=== PATIENT | female | born 1980 | race Caucasian/White ===

== ENCOUNTER 2017-02-18 16:37 | Emergency (ER) | payer BC ==
[2017-02-18 17:05] VITALS: BP 107/71; PULSE 83; RESP 16; TEMP 97.4
--- NOTE | 2017-02-18 17:58 | XR ---
EXAMINATION TYPE: XR foot complete LT DATE OF EXAM: 02/18/2017 CLINICAL HISTORY: pain TECHNIQUE: Frontal, lateral and oblique images of the left foot are obtained. COMPARISON: None. FINDINGS: Nondisplaced fracture at the base of the fifth metatarsal. The joint spaces appear within normal limits. The overlying soft tissue appears unremarkable. IMPRESSION: Nondisplaced fracture at the base of the fifth metatarsal. ICD 10 closed FRACTURE, INITIAL EVALUATION
--- NOTE | 2017-02-18 18:00 | ED ---
General Adult HPI - General Chief complaint: Fall Stated complaint: foot injury Time Seen by Provider: 02/18/17 17:18 Source: patient, RN notes reviewed Mode of arrival: wheelchair Limitations: no limitations - History of Present Illness Initial comments: Patient 36-year-old female who presents emergency room today with a chief complaint of injury to the left foot that occurred prior to arrival. She does admit that she was in her attic putting some insulation when she fell through the ceiling injuring her left foot. She denies any head injury or loss consciousness. She denies any other complaints or symptoms other than pain to the left foot. Patient states having pain with ambulation. Patient denies any recent fever, chills, shortness of breath, chest pain, back pain, abdominal pain , nausea or vomiting, numbness or tingling, dysuria or hematuria, constipation or diarrhea, headaches or visual changes, or any other complaints. - Related Data Home Medications Medication Instructions Recorded Confirmed [id number] Acid 1 each PO DAILY 04/20/14 04/27/14 [-U Capsule] Acetaminophen Tab [Tylenol] 1,000 mg PO Q6HR PRN 04/27/14 04/27/14 Docusate [Colace] 100 mg PO DAILY 04/27/14 04/27/14 Ibuprofen [Motrin] 600 mg PO Q6HR PRN 04/27/14 04/27/14 Previous Rx's Medication Instructions Recorded Azithromycin [Zithromax Z-pack] 250 mg PO DIRECTED #6 tab 04/28/14 Metoclopramide HCl [Reglan] 10 mg PO Q6HR PRN #10 tablet 04/28/14 Ibuprofen [Motrin] 600 mg PO Q6HR PRN #40 day 02/18/17 Allergies Allergy/AdvReac Type Severity Reaction Status Date / Time Penicillins Allergy Itching Verified 04/27/14 20:11 Review of Systems ROS Statement: Those systems with pertinent positive or pertinent negative responses have been documented in the HPI. ROS Other: All systems not noted in ROS Statement are negative. Past Medical History Additional Past Medical History / Comment(s): Cystic fibrosis carrier, negative. History of Any Multi-Drug Resistant Organisms: None Reported Past Surgical History: Section Additional Past Surgical History / Comment(s): wisdom teeth removed Past Anesthesia/Blood Transfusion Reactions: No Reported Reaction Past Psychological History: No Psychological Hx Reported Smoking Status: Former smoker Past Alcohol Use History: None Reported Past Drug Use History: None Reported General Exam - General Exam Comments Initial Comments: General: The patient is awake and alert, in no distress, and does not appear acutely ill. Neck: The neck is supple, there is no tenderness or JVD. Cardiovascular: There is a regular rate and rhythm. No murmur, rub or gallop is appreciated. Respiratory: Lungs are clear to auscultation, respirations are non-labored, breath sounds are equal. No wheezes, stridor, rales, or rhonchi. Musculoskeletal: Patient does have some bruising and swelling over the fourth and fifth metatarsals. Locally tender over the third fourth and fifth proximal metatarsals. No tenderness down into the digits. No tenderness to the left ankle or left knee. Sensations are intact pulses bilateral 2+. Strength 4/5 due to pain. Neurological: A&O x 3. CN II-XII intact, There are no obvious motor or sensory deficits. Coordination appears grossly intact. Speech is normal. Skin: Skin is warm and dry and no rashes or lesions are noted. Psychiatric: Normal mood and affect. Limitations: no limitations Course Vital Signs 02/18/17 17:00 Temperature 97.4 F L Pulse Rate 83 Respiratory 16 Rate Blood Pressure 107/71 O2 Sat by Pulse 100 Oximetry Medical Decision Making - Medical Decision Making Ecotrin reviewed does show a fracture of the fifth metatarsal nondisplaced. Results were discussed with the patient. She's been splinted in a posterior short leg OCL splint. Neurovascular rechecked and intact in patient discharged and advised to follow-up with orthopedics over the next 2 days. Advised nonweightbearing. Disposition Clinical Impression: Foot fracture, left Disposition: HOME SELF-CARE Condition: Good Instructions: Foot Fracture in Adults (ED) Additional Instructions: Please leave splint in place until follow-up appointment with orthopedics over the next 2 days. Please use crutches with nonweightbearing. Please continue to ice elevate the affected area. Please return here to emergency room if any symptoms increase or worsen or for any other concerns. Prescriptions: Ibuprofen [Motrin] 600 mg PO Q6HR PRN #40 day PRN Reason: Pain Referrals: Joe Harrison MD [Primary Care Provider] - 1-2 days Mckinley Bergeron DO [Doctor of Osteopathic Medicine] - 1-2 days Time of Disposition: 18:16
== END 2017-02-18 18:29 | disposition home or self-care (01) ==
LOC: EC 16:37
DX: S92.355A Nondisplaced fracture of fifth metatarsal bone, left foot, initial encounter for closed fracture (principal); Z87.891 Personal history of nicotine dependence; Z88.0 Allergy status to penicillin; Z79.899 Other long term (current) drug therapy; W17.89XA Other fall from one level to another, initial encounter; Y93.89 Activity, other specified
CPT/HCPCS: 29515; 99283

== ENCOUNTER → 2017-03-13 | Outpatient (CLI) | payer BC ==
--- NOTE | 2017-03-13 09:43 | MM ---
Reason for exam: screening (asymptomatic). Baseline mammogram. History: Patient had first child at age 33. Family history of breast cancer in mother at age 4. Physical Findings: Nurse did not find any significant physical abnormalities on exam. MG 3D Screening Mammo W/Cad Bilateral CC and MLO view(s) were taken. The breast tissue is extremely dense which could obscure a lesion on mammography. Stable benign calcifications. There is no discrete abnormality. These results were verbally communicated with the patient and result sheet given to the patient on 03/13/17. ASSESSMENT: Benign, BI-RAD 2 RECOMMENDATION: Routine screening mammogram of both breasts in 1 year.
== END | disposition home or self-care (01) ==
LOC: RADMAMWWP 08:14
PROVIDERS: ATTEND Obstetrics & Gynecology
DX: Z12.31 Encounter for screening mammogram for malignant neoplasm of breast (principal); Z80.3 Family history of malignant neoplasm of breast
CPT/HCPCS: 77063; G0202

== ENCOUNTER → 2018-04-22 | Outpatient (CLI) | payer BC ==
--- NOTE | 2018-04-27 08:48 | USB ---
Reason for exam: additional evaluation requested from abnormal screening. History: Patient had first child at age 33. Family history of breast cancer in mother at age 40. Took hormonal contraceptives for 4 years. Physical Findings: Nurse did not find any significant physical abnormalities on exam. US Breast Workup Limited RT Right limited breast ultrasound including focal area of concern, retroareolar and axilla demonstrates a 0.5 x 0.5 x 0.3cm oval, cystic lesion at 9 o'clock and a 0.8 x 0.5 x 0.6cm cystic lesion at 11 o'clock. These seem to correspond to nodularity on mammogram. Diagnostic mammogram can be performed in 1 year. These results were verbally communicated with the patient and result sheet given to the patient on 04/22/18. ASSESSMENT: Probably benign, BI-RAD 3 RECOMMENDATION: Follow-up diagnostic mammogram of both breasts in 1 year.
== END | disposition home or self-care (01) ==
LOC: RADUSWWP 15:40
PROVIDERS: ATTEND Obstetrics & Gynecology
DX: R92.8 Other abnormal and inconclusive findings on diagnostic imaging of breast (principal)

== ENCOUNTER → 2019-05-25 | Outpatient (CLI) | payer BC ==
--- NOTE | 2019-05-25 10:36 | CT ---
EXAMINATION TYPE: CT abdomen pelvis wo con DATE OF EXAM: 05/25/2019 HISTORY: Constipation for 5+ years. CT DLP: 187.7 mGycm. Automated Exposure Control for Dose Reduction was Utilized. TECHNIQUE: CT scan of the abdomen and pelvis is performed with oral but without IV contrast. COMPARISON: CT abdomen and pelvis April 27, 2014 FINDINGS: Within the limitations of a non-contrast study, the following observations are made. LUNG BASES: No significant abnormality is appreciated. LIVER/GB: Simple appearing 1.3 cm thin-walled cyst right hepatic dome posterior segment axial image 1 6 slightly increased in size from prior. PANCREAS: No significant abnormality is seen. SPLEEN: No significant abnormality is seen. ADRENALS: No significant abnormality is seen. KIDNEYS: No renal stones or hydronephrosis is seen bilaterally. BOWEL: Patient has very little abdominal fat making evaluation suboptimal. Oral contrast reaches sple shahbaz flexure making evaluation of distal bowel also slightly suboptimal. There is no suspicious small or large bowel dilatation. Perhaps mild prominence of fecal material throughout the colon. GENITAL ORGANS: Anteverted uterus. A pessary type device is noted at level of cervix on current study .. LYMPH NODES: No greater than 1cm abdominal or pelvic lymph nodes are appreciated. OSSEOUS STRUCTURES: No significant abnormality is seen. OTHER: No significant additional abnormality is seen. IMPRESSION: No bowel obstruction. Perhaps mild diffuse colonic fecal stasis.
== END | disposition home or self-care (01) ==
LOC: RADCTMAIN 08:19
PROVIDERS: ATTEND Family Medicine
DX: R10.9 Unspecified abdominal pain (principal)
CPT/HCPCS: 74176

== ENCOUNTER → 2019-07-09 | Outpatient (CLI) | payer BC ==
--- NOTE | 2019-07-09 13:33 | MM ---
Reason for exam: additional evaluation requested from prior study. Last mammogram was performed 1 year and 3 months ago. History: Patient had first child at age 33. Family history of breast cancer in mother at age 40 and breast cancer in sister at age 41. Took hormonal contraceptives for 4 years. Taking estrogen for 6 months. Physical Findings: Nurse did not find any significant physical abnormalities on exam. MG 3D Diag Mammo W/Cad YAEL Bilateral CC and MLO view(s) were taken. Prior study comparison: April 13, 2018, bilateral MG 3d screening mammo w/cad. March 13, 2017, bilateral MG 3d screening mammo w/cad. The breast tissue is extremely dense which could obscure a lesion on mammography. Finding: There is a high density, lobulated mass located 2-3 cm from the nipple in the 9 o'clock position of the right breast. There is no discrete abnormality. Left subareolar ultrasound can be performed. New finding since April 13, 2018 and March 13, 2017. These results were verbally communicated with the patient and result sheet given to the patient on 07/09/19. ASSESSMENT: Incomplete: need additional imaging evaluation, BI-RAD 0 RECOMMENDATION: Ultrasound of both breasts.
--- NOTE | 2019-07-09 13:34 | USB ---
Reason for exam: additional evaluation requested from abnormal screening. History: Patient had first child at age 33. Family history of breast cancer in mother at age 40 and breast cancer in sister at age 41. Took hormonal contraceptives for 4 years. Taking estrogen for 6 months. US Breast Limited BILAT Right limited breast ultrasound including focal area of concern, retroareolar and axilla demonstrates a 0.6 x 0.6 x 0.4cm cystic lesion at 9 o'clock and a 0.5 x 0.4 x 0.3cm cystic lesion at 11 o'clock. Left limited breast ultrasound including focal area of concern, retroareolar and axilla demonstrates a 0.8 x 0.7 x 0.3cm cystic lesion at 4 o'clock. These results were verbally communicated with the patient and result sheet given to the patient on 07/09/19. ASSESSMENT: Benign, BI-RAD 2 RECOMMENDATION: Routine screening mammogram of both breasts in 1 year. Manage patient on a clinical basis.
== END | disposition home or self-care (01) ==
LOC: RADMAMWWP 10:54
PROVIDERS: ATTEND Obstetrics & Gynecology
DX: R92.8 Other abnormal and inconclusive findings on diagnostic imaging of breast (principal)
CPT/HCPCS: 77062; 77066

== ENCOUNTER → 2020-07-19 | Outpatient (CLI) | payer BC ==
--- NOTE | 2020-07-21 08:55 | MM ---
Reason for exam: screening (asymptomatic). Last mammogram was performed 1 year ago. History: Patient is postmenopausal and had first child at age 33. Family history of breast cancer in mother at age 40 and breast cancer in sister at age 41. Took hormonal contraceptives for 4 years. Taking estrogen for 6 months. Physical Findings: A clinical breast exam by your physician is recommended on an annual basis and results should be correlated with mammographic findings. MG 3D Screening Mammo W/Cad Bilateral CC and MLO view(s) were taken. Prior study comparison: July 09, 2019, bilateral MG 3d diag mammo w/cad YAEL. April 13, 2018, bilateral MG 3d screening mammo w/cad. The breast tissue is extremely dense which could obscure a lesion on mammography. Bilateral underlying nodularity is fluctuating. No suspicious calcifications. ASSESSMENT: Incomplete: need additional imaging evaluation, BI-RAD 0 RECOMMENDATION: Ultrasound of both breasts. [facility] will attempt to contact patient to return for ultrasound.
== END | disposition home or self-care (01) ==
LOC: RADMAMWWP 15:42
PROVIDERS: ATTEND Obstetrics & Gynecology
DX: Z12.31 Encounter for screening mammogram for malignant neoplasm of breast (principal)
CPT/HCPCS: 77063; 77067

== ENCOUNTER → 2020-08-07 | Outpatient (CLI) | payer BC ==
--- NOTE | 2020-08-08 08:47 | USB ---
Reason for exam: additional evaluation requested from abnormal screening. History: Patient is postmenopausal and had first child at age 33. Family history of breast cancer in mother at age 40 and breast cancer in sister at age 41. Took hormonal contraceptives for 4 years. Taking estrogen for 6 months. Physical Findings: Nurse did not find any significant physical abnormalities on exam. US Breast Workup YAEL Right complete breast ultrasound includes all four quadrants, the retroareolar region and axilla. Finding demonstrates a 0.5 x 0.3 x 0.6cm cystic lesion at 9 o'clock and 0.9 x 0.7 x 0.9cm cystic lesion at 11 o'clock, larger but benign. Left complete breast ultrasound includes all four quadrants, the retroareolar region and axilla. Finding demonstrates a 0.6 x 0.3 x 0.5cm hypoechoic, circumscribed lesion at 3 o'clock, 6 month follow up recommended, a 0.9 x 0.4 x 0.8cm cystic lesion at 4 o'clock and a 0.3 x 0.3 x 0.3cm lesion too small to characterize at 11 o'clock, probably a cyst. These results were verbally communicated with the patient and result sheet given to the patient on 08/07/20. ASSESSMENT: Probably benign, BI-RAD 3 RECOMMENDATION: Ultrasound of the left breast in 6 months. (whole breast, particular attention 3 o'clock)
== END | disposition home or self-care (01) ==
LOC: RADUSWWP 15:01
PROVIDERS: ATTEND Obstetrics & Gynecology
DX: R92.8 Other abnormal and inconclusive findings on diagnostic imaging of breast (principal)

== ENCOUNTER → 2021-02-09 | Outpatient (CLI) | payer BC ==
--- NOTE | 2021-02-09 12:26 | USB ---
Reason for exam: follow-up at short interval from prior study. History: Patient is postmenopausal and had first child at age 33. Family history of breast cancer in mother at age 40 and breast cancer in sister at age 41. Took hormonal contraceptives for 4 years. Taking estrogen for 6 months. Physical Findings: Nurse Summary: all soft, nodular, movable (nurse ts). US Breast LT Left complete breast ultrasound includes all four quadrants, the retroareolar region and axilla. Finding demonstrates a 0.3 x 0.2 x 0.2cm oval, cystic lesion at 3 o'clock and a 0.5 x 0.3 x 0.4cm oval, cystic lesion at 2 o'clock. These results were verbally communicated with the patient and result sheet given to the patient on 02/09/21. ASSESSMENT: Benign, BI-RAD 2 RECOMMENDATION: Return to routine screening mammogram schedule for both breasts. Back on schedule. Manage patient on a clinical basis.
== END | disposition home or self-care (01) ==
LOC: RADUSWWP 08:27
PROVIDERS: ATTEND Obstetrics & Gynecology
DX: N60.02 Solitary cyst of left breast (principal); Z78.0 Asymptomatic menopausal state; Z80.3 Family history of malignant neoplasm of breast; Z79.3 Long term (current) use of hormonal contraceptives

== ENCOUNTER → 2021-07-05 | Outpatient (CLI) | payer BC ==
--- NOTE | 2021-07-05 16:32 | US ---
EXAMINATION TYPE: US thyroid st tissue head/neck DATE OF EXAM: 07/05/2021 COMPARISON: 2016 CLINICAL HISTORY: Z80.8 FAM HX OF MALIGNANT NEOPLASM OF ORGANS OR SYSTEMS. Previous thyroid nodules p er US. GLAND SIZE: Right Lobe: 5.5 x 1.9 x 1.1 cm Overall Parenchyma: homogenous Left Lobe: 4.8 x 1.7 x 1.2 cm Overall Parenchyma: homogeneous Isthmus Thickness: 0.2 cm NODULES RIGHT: # of nodules measured on right: 3 largest of multiple 1. 0.5 X 0.3 x 0.3 cm, upper pole, almost completely cystic, hypoechoic nodule, which is wide as is tall, with smooth margins, with echogenic foci. Prior size: 0.5 x 0.3 x 0.3 cm 2. 0.6 X 0.3 x 0.3 cm, mid pole, almost completely cystic, hypoechoic nodule, which is wide as is t all, with smooth margins, with echogenic foci. Prior size: 0.6 x 0.5 x 0.4 cm 3. 0.4 X 0.5 x 0.3 cm, lower pole, almost completely solid, hypoechoic nodule, which is wider than tall, with smooth margins, without echogenic foci. Prior size: no prior LEFT: # of nodules measured on left: one largest of multiple 1. 0.5 X 0.5 x 0.3 cm, lower pole, almost completely cystic, hypoechoic nodule, which is wider than tall, with smooth margins, with echogenic foci. Prior size: 0.5 x 0.4 x 0.2 cm ISTHMUS: # of nodules measured in the isthmus: 0 Bilateral neck scanned: inferior to left thyroid a hypoechoic nodule with appearance of lymph node is noted = 0.6 x 0.3 x 0.3cm. Heterogeneous normal-sized thyroid with small bilateral nodules redemonstrated. No significant new gr eater than 1 cm solid nodules. IMPRESSION: Findings consistent with multinodular goiter redemonstrated as detailed above.
== END | disposition home or self-care (01) ==
LOC: RADUSWWP 13:43
PROVIDERS: ATTEND Family Medicine
DX: E04.2 Nontoxic multinodular goiter (principal); Z80.8 Family history of malignant neoplasm of other organs or systems
CPT/HCPCS: 76536

== ENCOUNTER → 2021-09-12 | Outpatient (CLI) | payer BC ==
--- NOTE | 2021-09-14 10:44 | MM ---
Reason for exam: screening (asymptomatic). Last mammogram was performed 1 year and 2 months ago. History: Patient is postmenopausal and had first child at age 33. Family history of breast cancer in mother at age 40 and breast cancer in sister at age 41. Took hormonal contraceptives for 4 years. Taking estrogen for 6 months. Physical Findings: A clinical breast exam by your physician is recommended on an annual basis and results should be correlated with mammographic findings. MG 3D Screening Mammo W/Cad Bilateral CC and MLO view(s) were taken. Prior study comparison: February 09, 2021, left breast US breast LT. August 07, 2020, bilateral US breast workup YAEL. July 19, 2020, bilateral MG 3d screening mammo w/cad. July 09, 2019, bilateral MG 3d diag mammo w/cad YAEL. April 13, 2018, bilateral MG 3d screening mammo w/cad. The breast tissue is heterogeneously dense. This may lower the sensitivity of mammography. There is chronic nodularity in the right breast. No significant changes when compared with prior studies. ASSESSMENT: Benign, BI-RAD 2 RECOMMENDATION: Routine screening mammogram of both breasts in 1 year. Patient should continue monthly self breast exams. A negative report should not preclude additional follow up of suspicious palpable abnormalities.
== END | disposition home or self-care (01) ==
LOC: RADMAMWWP 16:46
PROVIDERS: ATTEND Obstetrics & Gynecology
DX: Z12.31 Encounter for screening mammogram for malignant neoplasm of breast (principal); Z80.3 Family history of malignant neoplasm of breast; Z78.0 Asymptomatic menopausal state
CPT/HCPCS: 77063; 77067

== ENCOUNTER → 2022-09-13 | Outpatient (CLI) | payer OTHER ==
--- NOTE | 2022-09-16 07:47 | MM ---
Reason for Exam: Screening (asymptomatic). Last screening mammogram was performed 12 month(s) ago. Patient History: Menarche at age 13. First Full-Term at age 33. Late child-bearing (after 30). Postmenopausal. Currently using Estrogen, for 6 months. Patient used Hormonal Contraceptives for 4 years. Sister had breast cancer, age 41. Mother had breast cancer, age 40. Sister tested for BRCA1 outcome was negative. Mother tested for BRCA1 outcome was negative. Risk Values: Isela 5 year model risk: 2.0%. NCI Lifetime model risk: 26.4%. Prior Study Comparison: 07/09/2019 Bilateral Diagnostic Mammogram, [facility]. 07/19/2020 Bilateral Screening Mammogram, [facility]. 09/12/2021 Bilateral Screening Mammogram, [facility]. Tissue Density: The breast tissue is heterogeneously dense. This may lower the sensitivity of mammography. Findings: Analyzed By CAD. There is no suspicious group of microcalcifications or new suspicious mass in either breast. Overall Assessment: Negative, BI-RAD 1 Management: Screening Mammogram of both breasts in 1 year. A clinical breast exam by your physician is recommended on an annual basis and results should be correlated with mammographic findings. Electronically signed and approved by: Sherif Khanna M.D. Radiologis
== END | disposition home or self-care (01) ==
LOC: RADMAMWWP 11:23
PROVIDERS: ATTEND Obstetrics & Gynecology
DX: Z12.31 Encounter for screening mammogram for malignant neoplasm of breast (principal); Z78.0 Asymptomatic menopausal state; Z80.3 Family history of malignant neoplasm of breast
CPT/HCPCS: 77063; 77067

== ENCOUNTER → 2023-01-06 | Outpatient (CLI) | payer OTHER ==
--- NOTE | 2023-01-07 08:58 | US ---
EXAMINATION TYPE: US thyroid st tissue head/neck DATE OF EXAM: 01/06/2023 COMPARISON: 07/05/2021. CLINICAL INDICATION: Female, 42 years old with history of E04.1 THYROID NODULE; Thyroid nodules. GLAND SIZE: Right Lobe: 4.9 x 1.2 x 1.8 cm Overall Parenchyma: homogenous Left Lobe: 4.1 x 1.0 x 1.0 cm Overall Parenchyma: homogeneous Isthmus Thickness: .3 cm NODULES RIGHT: # of nodules measured on right: Tiny subcentimeter ones. LEFT: # of nodules measured on left: Multiple subcentimeter ones. ISTHMUS: # of nodules measured in the isthmus: 0 Bilateral neck scanned, no evidence of lymphadenopathy. IMPRESSION: No suspicious thyroid nodules. Consider follow-up in one year.
== END | disposition home or self-care (01) ==
LOC: RADUSWWP 15:07
PROVIDERS: ATTEND Internal Medicine
DX: E04.2 Nontoxic multinodular goiter (principal)
CPT/HCPCS: 76536

== ENCOUNTER → 2023-09-23 | Outpatient (CLI) | payer OTHER ==
--- NOTE | 2023-09-25 13:35 | MM ---
Reason for Exam: Screening (asymptomatic). Last screening mammogram was performed 12 month(s) ago. Patient History: Menarche at age 13. First Full-Term at age 33. Late child-bearing (after 30). Postmenopausal. Currently using Estrogen, for 6 months. Patient used Hormonal Contraceptives for 4 years. Sister had breast cancer, age 41. Mother had breast cancer, age 40. Sister tested for BRCA1 outcome was negative. Mother tested for BRCA1 outcome was negative. Risk Values: Isela 5 year model risk: 2.1%. NCI Lifetime model risk: 26.2%. Prior Study Comparison: 07/19/2020 Bilateral Screening Mammogram, [facility]. 09/12/2021 Bilateral Screening Mammogram, [facility]. 09/13/2022 Bilateral MG 3D screening mammo w/cad, [facility]. Tissue Density: The breasts are extremely dense, which lowers the sensitivity of mammography. Findings: Analyzed By CAD. There is no suspicious group of microcalcifications or new suspicious mass in either breast. Overall Assessment: Benign, BI-RAD 2 Management: Screening Mammogram of both breasts in 1 year. . Patient should continue monthly self-breast exams. A clinical breast exam by your physician is recommended on an annual basis. This exam should not preclude additional follow-up of suspicious palpable abnormalities. Note on Isela scores and lifetime risk: 1. A Isela score greater than 3% is considered moderate risk. If this is the case, consider specialist referral to assess eligibility for a risk reducing agent. 2. If overall lifetime risk for the development of breast cancer is 20% or higher, the patient may qualify for future screening with alternating mammogram and breast MRI. Electronically signed and approved by: Sherif Khanna M.D. Radiologis
== END | disposition home or self-care (01) ==
LOC: RADMAMWWP 12:47
PROVIDERS: ATTEND Obstetrics & Gynecology
DX: Z12.31 Encounter for screening mammogram for malignant neoplasm of breast (principal); Z78.0 Asymptomatic menopausal state; Z80.3 Family history of malignant neoplasm of breast
CPT/HCPCS: 77063; 77067

== ENCOUNTER → 2024-08-06 | Outpatient (CLI) | payer OTHER ==
--- NOTE | 2024-08-06 19:32 | MR ---
EXAMINATION TYPE: MR knee RT wo con DATE OF EXAM: 08/06/2024 7:22 PM COMPARISON: None. CLINICAL INDICATION: Female, 44 years old with history of M23.91 S83.91XA S83.206A M25.561 M25.461, R ight knee pain, injury 4 weeks ago. IV Contrast: cc (None if empty) TECHNIQUE: Multiplanar, multisequence imaging of the right knee is performed without IV contrast. FINDINGS: MEDIAL MENISCUS: Anterior and posterior horns are intact without tear. LATERAL MENISCUS: Anterior and posterior horns are intact without tear. CRUCIATE LIGAMENTS: There is increased signal with linear component seen within the ACL compatible wi th partial ACL tear. PCL is intact. COLLATERAL LIGAMENTS: The medial collateral ligament and lateral collateral ligament complex are inta ct and unremarkable. EXTENSOR MECHANISM: Visualized quadriceps and patellar tendons are intact. EFFUSION: No significant suprapatellar joint effusion. POPLITEAL CYST: No popliteal/gutierrez cyst. TRICOMPARTMENT SPACES: Intact CARTILAGE: Intact BONE MARROW SIGNAL: Moderate-sized area of bone contusion involving the lateral tibial plateau extend ing medially. No definite displaced fracture identified at this time. OTHER: No additional significant abnormality is appreciated. IMPRESSION: 1.There is increased signal with linear component seen within the ACL compatible with partial ACL tea r. 2.Moderate-sized area of bone contusion involving the lateral tibial plateau extending medially. No d efinite displaced fracture identified at this time. [facility], , 08/06/2024 7:30 PM
== END | disposition home or self-care (01) ==
LOC: RADMRIMAIN 18:52
PROVIDERS: ATTEND Orthopaedic Surgery
DX: S83.511A Sprain of anterior cruciate ligament of right knee, initial encounter (principal); S83.206A Unspecified tear of unspecified meniscus, current injury, right knee, initial encounter; M23.91 Unspecified internal derangement of right knee; M25.461 Effusion, right knee; X58.XXXA Exposure to other specified factors, initial encounter

== ENCOUNTER → 2024-10-15 | Outpatient (CLI) | payer OTHER ==
--- NOTE | 2024-10-18 07:22 | MM ---
Reason for Exam: Screening (asymptomatic). Last mammogram was performed 1 year(s) and 1 month(s) ago. Patient History: Menarche at age 13. First Full-Term at age 33. Late child-bearing (after 30). Postmenopausal. Currently using Estrogen, for 6 months. Currently using Progesterone, starting at age 44. Patient used Hormonal Contraceptives for 4 years. Sister had breast cancer, age 41. Mother had breast cancer, age 40. Sister tested for BRCA1 outcome was negative. Mother tested for BRCA1 outcome was negative. Risk Values: Isela 5 year model risk: 2.3%. NCI Lifetime model risk: 26.0%. Prior Study Comparison: 09/12/2021 Bilateral Screening Mammogram, [facility]. 09/13/2022 Bilateral MG 3D screening mammo w/cad, [facility]. 09/23/2023 Bilateral MG 3D screening mammo w/cad, [facility]. Tissue Density: The breasts are heterogeneously dense, which may obscure small masses. Findings: Analyzed By CAD. Right breast: There is no suspicious group of microcalcifications or new suspicious mass. Left breast: There is no suspicious group of microcalcifications or new suspicious mass. Overall Assessment: Negative, BI-RAD 1 Management: Screening Mammogram of both breasts in [address] [facility] will attempt to contact patient to return for supplemental views and ultrasound if indicated. Patient should continue monthly self-breast exams. A clinical breast exam by your physician is recommended on an annual basis. This exam should not preclude additional follow-up of suspicious palpable abnormalities. Note on Isela scores and lifetime risk: 1. A Isela score greater than 3% is considered moderate risk. If this is the case, consider specialist referral to assess eligibility for a risk reducing agent. 2. If overall lifetime risk for the development of breast cancer is 20% or higher, the patient may qualify for future screening with alternating mammogram and breast MRI. [facility], , 10/18/2024 7:19 AM. Electronically signed and approved by: John Aragon DO
== END | disposition home or self-care (01) ==
LOC: RADMAMWWP 16:27
PROVIDERS: ATTEND Obstetrics & Gynecology
DX: Z12.31 Encounter for screening mammogram for malignant neoplasm of breast (principal); R92.333 Mammographic heterogeneous density, bilateral breasts; Z78.0 Asymptomatic menopausal state; Z92.0 Personal history of contraception; Z80.3 Family history of malignant neoplasm of breast
CPT/HCPCS: 77063; 77067

== ENCOUNTER → 2024-11-22 | Outpatient (CLI) | payer OTHER ==
--- NOTE | 2024-11-24 11:03 | BMR ---
EXAM DATE: 11/22/2024 EXAM DESCRIPTION: MRI-Breast Bilat (W/WO Contrast) INDICATION: >20% lifetime risk for malignancy, high risk surveillance. COMPARISON: Comparison was made to prior relevant imaging available in PACS TECHNIQUE: Multiplanar multisequence breast MRI was performed prior to and after administration of 4.5 mL of gadobutrol intravenously. Post processing was performed utilizing a [employer] workstation. The technical portion of this study was performed at [facility] with radiological interpretation by [facility] radiology. FINDINGS: There is marked, symmetric background parenchymal enhancement in breasts that are composed of heterogeneous fibroglandular tissue. RIGHT BREAST: Review of the dynamic contrast enhanced series shows a 6 mm T2 hyperintense enhancing mass at 6- 7 o'clock position far posterior breast (series 401, image 13, series 505, image 148). Otherwise, no suspicious enhancement patterns or other abnormalities. LEFT BREAST: Review of the dynamic contrast enhanced series shows no rapidly enhancing masses, suspicious enhancement pattern or other abnormalities. The T2 weighted series show no abnormality. LYMPH NODES: No axillary or internal mammary lymphadenopathy. IMPRESSION: 1. Right breast: A 6 mm enhancing mass at 6-7 o'clock position far posterior breast. Recommend further evaluation with targeted ultrasound and ultrasound-guided biopsy if indicated. Given far posterior location, this is likely not amenable for MRI guided biopsy, therefore if no definitive sonographic correlate, recommend short-term follow-up with breast MRI in 6 months. 2. Left breast: No MR evidence of malignancy. OVERALL ASSESSMENT- BI-RADS 0 ANNUAL SCREENING BREAST MRI IN ADDITION TO MAMMOGRAPHY IS RECOMMENDED IN PATIENTS WITH LIFETIME RISK OF BREAST CANCER >20% MTDD
== END | disposition home or self-care (01) ==
LOC: RADMRIMAIN 08:29
PROVIDERS: ATTEND Obstetrics & Gynecology
DX: N63.13 Unspecified lump in the right breast, lower outer quadrant (principal); Z91.89 Other specified personal risk factors, not elsewhere classified
CPT/HCPCS: 77049; A9585

== ENCOUNTER → 2024-12-14 | Outpatient (CLI) | payer OTHER ==
--- NOTE | 2024-12-14 16:26 | US ---
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 FINDINGS: GLAND SIZE: Right Lobe: 4.6 x 1.1 x 1.4 cm Overall Parenchyma: homogeneous Left Lobe: 4.2 x 1.2 x 1.3 cm Overall Parenchyma: homogeneous Isthmus Thickness: 0.1 cm NODULES RIGHT: # of nodules measured on right: 0 LEFT: # of nodules measured on left: subcentimeter colloid cyst seen ISTHMUS: # of nodules measured in the isthmus: 0 Bilateral neck scanned, no evidence of lymphadenopathy. IMPRESSION: Left thyroid lobe subcentimeter colloid cyst. [facility], , 12/14/2024 4:24 PM
== END | disposition home or self-care (01) ==
LOC: RADUSWWP 15:38
PROVIDERS: ATTEND Internal Medicine
DX: E04.1 Nontoxic single thyroid nodule (principal)
CPT/HCPCS: 76536

== ENCOUNTER → 2024-12-16 | Outpatient (CLI) | payer OTHER ==
--- NOTE | 2024-12-22 12:09 | USB ---
Reason for Exam: Additional evaluation requested from prior study. Patient History: Menarche at age 13. First Full-Term at age 33. Late child-bearing (after 30). Postmenopausal. Currently using Estrogen, for 6 months. Currently using Progesterone, starting at age 44. Patient used Hormonal Contraceptives for 4 years. Sister had breast cancer, age 41. Mother had breast cancer, age 40. Sister tested for BRCA1 outcome was negative. Mother tested for BRCA1 outcome was negative. Risk Values: Isela 5 year model risk: 2.3%. NCI Lifetime model risk: 26.0%. Technique: Method: Targeted. Prior Study Comparison: 09/13/2022 Bilateral MG 3D screening mammo w/cad, [facility]. 09/23/2023 Bilateral MG 3D screening mammo w/cad, [facility]. 10/15/2024 Bilateral MG 3D screening mammo w/cad, [facility]. Findings: The lower section of the breast of the right breast, the axilla of the right breast and the retroareolar of the right breast were scanned. A limited US of lower right breast 4-9 o'clock and retro-areolar, axilla region were reviewed. There is a anechoic 8 x 3 mm benign-appearing lesion 6:00 right breast. This may correspond to the enhancing lesion noted by MRI. It is not certain if this definitively represents the MRI abnormality port at the 7:00 position. Recommend ultrasound-guided aspiration At the 9:00 position there is a anechoic 7 x 6 cm most likely related to cyst. In the retroareolar region inferiorly there is a irregular shaped 1.2 cm hypoechoic area. Additional imaging was taken demonstrating what appears to be a septated cystic structure likely benign. This could be aspirated at the time of the 6:00 aspiration. Overall Assessment: Suspicious, BI-RAD 4 Management: Aspiration of the right breast. A clinical breast exam by your physician is recommended on an annual basis and results should be correlated with mammographic findings. This exam should not preclude additional follow-up of suspicious palpable abnormalities. Results were given to the patient verbally at the time of exam. [facility], , 12/16/2024 4:01 PM. Electronically signed and approved by: Ramez Schmidt M.D. Radiologis
== END | disposition home or self-care (01) ==
LOC: RADUSWWP 12-14 15:37
PROVIDERS: ATTEND Obstetrics & Gynecology
DX: R92.8 Other abnormal and inconclusive findings on diagnostic imaging of breast (principal); Z78.0 Asymptomatic menopausal state; Z92.0 Personal history of contraception; Z80.3 Family history of malignant neoplasm of breast

== ENCOUNTER → 2024-12-30 | Day surgery (SDC) | payer OTHER ==
--- NOTE | 2025-01-04 15:31 | MM ---
Reason for Exam: Post Procedure Mammogram. Last screening mammogram was performed 2 month(s) ago. Patient History: Menarche at age 13. First Full-Term at age 33. Late child-bearing (after 30). Postmenopausal. Currently using Estrogen, for 6 months. Currently using Progesterone, starting at age 44. Patient used Hormonal Contraceptives for 4 years. Sister had breast cancer, age 41. Mother had breast cancer, age 40. Sister tested for BRCA1 outcome was negative. Mother tested for BRCA1 outcome was negative. Risk Values: Isela 5 year model risk: 2.3%. NCI Lifetime model risk: 26.0%. Prior Study Comparison: 09/13/2022 Bilateral MG 3D screening mammo w/cad, [facility]. 09/23/2023 Bilateral MG 3D screening mammo w/cad, [facility]. 10/15/2024 Bilateral MG 3D screening mammo w/cad, [facility]. Tissue Density: Right: The breasts are heterogeneously dense, which may obscure small masses. Pathology Description: Location: retroareolar. Marker Left Behind. Needle Type: Mammotome Cores: 4 The lobulated hypoechoic area measuring 1.1 x 0.6 cm far posterior inferior subareolar region is identified and targeted for biopsy. Possible cyst cluster. Possible MRI correlate. The second 6:00 area, 4 cm from the nipple corresponds to a 8 x 5 x 2 mm benign cyst. The procedure of ultrasound guided core biopsy was explained to the patient. Benefits, alternatives, and risks were discussed. An informed consent was then obtained. The patient was placed in supine positioning for imaging and for the procedure. The overlying skin was prepped and draped in usual sterile fashion. Lidocaine buffered with bicarbonate was used as anesthetic into the skin and subcutaneous tissue up to area of concern in the 6:00 subareolar right breast. Under ultrasound guidance, a 13-gauge vacuum-assisted mammotome Elite biopsy gun was used to obtain 4 core samples. The lesion collapsed with the first sampling favoring a cystic etiology. Following this, a coil clip was left at the site of biopsy. The patient tolerated the procedure well without any immediate complication. The patient was kept in the radiology department for short stay after the procedure and then discharged home in stable condition. Postprocedure mammogram: The patient was transferred to mammography for physician ordered post procedure mammogram for clip placement verification. Post procedure mammogram demonstrates the coil clip at the central 6:00 posterior right breast. IMPRESSION: Successful, uncomplicated ultrasound guided core biopsy of possible MRI correlate 6:00 subareolar far posterior right breast, possible cyst cluster. Full pathology results to follow. [facility], , 12/30/2024 9:37 AM. Pathology Results: Result: Benign, Fibrocystic change. Pathology and radiology were reviewed. Findings are concordant. SPECIMEN LABELED "RIGHT BREAST NIPPLE", ULTRASOUND GUIDED CORE BIOPSY: Benign and sclerotic breast tissue with fibroadenomatoid features and fibrocystic change with apocrine metaplasia and columnar cell change. See note. Focal microcalcification present. Notes According to the medical record, the patient's 12/16/24 ultrasound report states that there is an 8 x 3 mm benign appearing lesion at the 6 o'clock right breast. A breast MRI from 11/22/24 states there is a 6 mm enhancing mass at the 6 to 7 o'clock position of the right breast. The findings seen may represent a sclerotic fibroadenoma with fibrocystic change. Benign pseudoangiomatous stromal hyperplasia (PASH) and sclerotic fibrous scar with background fibrocystic change is also considered. Clinical correlation with imaging results is suggested, as clinically indicated. Overall Assessment: Benign Assessment: MG diagnostic mammo RT wo CAD - Right: Benign, BI-RAD 2. Management: Diagnostic Mammogram of the right breast in 6 months. Electronically signed and approved by: Angel Jackson M.D. Radiologist
== END ==
LOC: RADUSWWP 07:38
PROVIDERS: ATTEND Obstetrics & Gynecology
DX: N60.81 Other benign mammary dysplasias of right breast (principal); Z92.0 Personal history of contraception; Z80.3 Family history of malignant neoplasm of breast; Z78.0 Asymptomatic menopausal state
CPT/HCPCS: 77065; 88305